=== PATIENT | female | born 1970 | race Caucasian/White ===

== ENCOUNTER 2016-07-06 09:06 | Emergency (ER) | payer MEDICARE, MEDICAID ==
[2016-07-06 10:47] VITALS: BP 114/72
--- NOTE | 2016-07-06 12:18 | RAD ---
Indication: Hip dislocation 5 views of left hip demonstrates superiorly subluxed humeral head out of the acetabulum. Marked deformity and superior dislocation of left femoral head is noted. When compared to previous exam of 5-12 this is unchanged. IMPRESSION: Chronic dislocation of the left hip. Right hip also demonstrates superior dislocation of the femoral head.
--- NOTE | 2016-07-06 12:58 | UC ---
Brianda Handy Salem, scribed for SabaValentin bermudez MD on 07/06/16 at 1104 . Hip/Pelvis Pain - HPI Summary HPI Summary: In Room note: Patient is a 45 y/o female who presents to the with left hip pain since this morning. Pt lives in a shelter and began to complain of pain when being dressed by aid. Pt has a hx of hip dislocation and fracture to femur. Pt has developmental delay. MD note: VSS; hx of spinal yanick placement, epilepsy, and developmental delay, multiple medications, in caregiving facility. Nurses note: Pt is from a shelter this morning pt was being dressed by aid and yelled out in pain to left hip. pt has a hx of hip dislocation - History Of Current Complaint Chief Complaint: UCLowerExtremity Stated Complaint: HIP PAIN Time Seen by Provider: 07/06/16 10:49 Hx Obtained From: Family/Area Operations Director Hx Last Menstrual Period: random Onset/Duration: Gradual Onset, Lasting Hours, Still Present Timing: Constant Severity Initially: Moderate Severity Currently: Moderate Location: Diffuse Character Of Pain: Sharp Aggravating Factor(s): Nothing Alleviating Factor(s): Nothing Associated Signs And Symptoms: Positive: Negative - Allergies/Home Medications Allergies/Adverse Reactions: Allergies Allergy/AdvReac Type Severity Reaction Status Date / Time Iodine Allergy UNK Verified 07/06/16 10:33 Latex Allergy UNK Verified 07/06/16 10:33 Home Medications: Home Medications Amoxil 07/06/16 [History] Diazepam TAB(*) [Valium TAB(*)] 5 mg PO TID PRN 07/06/16 [History Confirmed ] PMH/Surg Hx/FS Hx/Imm Hx Endocrine History Of: Denies: Diabetes, Thyroid Disease Cardiovascular History Of: Denies: Cardiac Disorders, Hypertension, Pacemaker/ICD Respiratory History Of: Denies: COPD, Asthma GI/ History Of: Denies: Gastroesophageal Reflux, Renal Disease Neurological History Of: Reports: Seizures Denies: CVA, Dementia Psychological History Of: Reports: Anxiety - sef-injurous behavior Other History Of: Negative For: Anticoagulant Therapy - Surgical History Surgical History: Yes Surgery Procedure, Year, and Place: SPINAL SURGERY RODS UNABLE TO SCAN - Family History Known Family History: Positive: Unknown - Pt is a poor historian. - Social History Alcohol Use: None Substance Use Type: None Smoking Status (MU): Never Smoked Tobacco - Immunization History Vaccination Up to Date: Yes Review of Systems Constitutional: Negative Musculoskeletal: Other: - Left hip pain. All Other Systems Reviewed And Are Negative: Yes Physical Exam Triage Information Reviewed: Yes Appearance: Well-Appearing, No Pain Distress, Well-Nourished Vital Signs: Initial Vital Signs Temp 97.7 F 07/06/16 10:26 Pulse 78 07/06/16 10:26 Resp 20 07/06/16 10:26 BP 114/72 07/06/16 10:26 Pulse Ox 97 07/06/16 10:26 Vital Signs Reviewed: Yes Eyes: Positive: Conjunctiva Clear ENT: Positive: Hearing grossly normal, Pharynx normal, TMs normal. Negative: Muffled/hoarse voice Neck: Positive: Supple, No Lymphadenopathy Respiratory: Positive: Chest non-tender, Lungs clear, Normal breath sounds, No respiratory distress Cardiovascular: Positive: RRR, No Murmur Abdomen Description: Positive: Nontender, No Organomegaly, Soft Bowel Sounds: Positive: Present Musculoskeletal: Positive: Other: - PT HAS OBVIOUSLY SHORTENED LOWER EXTREMITIES. SITTING WITHOUT DISCOMFORT BUT WHEN I TRIED TO MANIPULATE THE LLE SHE OBJECTS. Neurological: Positive: Alert Skin: Negative: rashes Diagnostics - Radiology HIP BILAT Radiology Interpretation Completed By: Radiologist - IMPRESSION: Chronic dislocation of the left hip. Right hip also demonstrates superior dislocation of the femoral head. Re-Evaluation - Re-Evaluation First Eval Re-Evaluation Time: 12:02 Comment: Informed caregivers that we are waiting on radiologist reading. Second Eval Re-Evaluation Time: 12:45 Comment: Informed caregivers of imaging resutls. Hip Injury Course/Dx - Course Course Of Treatment: Medications have been included in the original chart and reviewed. Pt has developmental delay and shortened lower extremity. She has a hx of femur fracture and bilateral hip displacement. XR shows a humeral head on the left that is dislocated superiorly. However this condition was present 5 years ago and is evident on xr from 06/17/11. Discussed this with care givers. Normal BP reading and no follow-up instructions required. - Differential Dx/Diagnosis Provider Diagnoses: Chronic dislocation of the left hip. Right hip also demonstrates superior dislocation of the femoral head. Discharge - Discharge Plan Condition: Stable Disposition: HOME Patient Education Materials: Hip Sprain (ED), Hip Dislocation (ED) Referrals: Princess Ross MD [Primary Care Provider] - Additional Instructions: Thank you for helping us improve patient care by filling out the My Point Survey. WE DISCUSSED: Beckie has chronic dislocations of both hips. A previous x ray 5 years ago shows dislocation of the left hip. Today's x ray also show dislocation of the right hip. Probably as Beckie is rolled and given care, her hips move and may dislocate and perhaps move back into position depending on the looseness of the joint. Warm moist heat to any area of discomfort. Recheck for continued pain in 2 days or sign of infection or decreased circulation. Call us for any questions or concerns. The documentation as recorded by the Brianda hoffman Salem accurately reflects the service I personally performed and the decisions made by me, Valentin Simmons MD.
== END 2016-07-06 13:05 | disposition home or self-care (01) ==
LOC: UCEAST 09:06
DX: S73.004A Unspecified dislocation of right hip, initial encounter (principal); M24.452 Recurrent dislocation, left hip; M21.70 Unequal limb length (acquired), unspecified site
CPT/HCPCS: 73523; 99212; G0463

== ENCOUNTER 2017-03-23 21:44 | Emergency (ER) | payer MEDICAID, MEDICARE ==
[2017-03-23 22:00] VITALS: BP 106/71
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
== END 2017-03-23 22:29 | disposition home or self-care (01) ==
LOC: UCEAST 21:44
DX: Z04.1 Encounter for examination and observation following transport accident (principal); Z88.3 Allergy status to other anti-infective agents; Z91.041 Radiographic dye allergy status; Z91.040 Latex allergy status
CPT/HCPCS: 99212; G0463

== ENCOUNTER 2019-02-15 18:09 | Emergency (ER) | payer MEDICARE, MEDICAID ==
--- NOTE | 2019-02-15 19:09 | ED ---
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 She choked on a hamburger and staff performed J-thrusts until a piece of meat was ejected. She is on a strict soft food diet. Pt is a level 5 caveat secondary to developmental delay. - History of Current Complaint Chief Complaint: EDGeneral Time Seen by Provider: 02/15/19 18:14 Hx Obtained From: EMS Hx From Patient Unobtainable Due To: Other - Pt is a level 5 caveat secondary to developmental delay. Onset/Duration: Sudden Onset, Resolved Associated Signs And Symptoms: Positive: Negative Cough: None - Allergies/Home Medications Allergies/Adverse Reactions: Allergies Allergy/AdvReac Type Severity Reaction Status Date / Time Iodinated Contrast Media Allergy Unknown Unknown Verified 03/23/17 22:01 [Iodinated Contrast- Oral Reaction and IV Dye] Details iodine Allergy Unknown Unknown Verified 03/23/17 22:01 Reaction Details latex Allergy Unknown Unknown Verified 03/23/17 22:01 Reaction Details PMH/Surg Hx/FS Hx/Imm Hx Endocrine/Hematology History: Denies: Hx Anticoagulant Therapy, Hx Diabetes, Hx Thyroid Disease Cardiovascular History: Denies: Hx Hypertension, Hx Pacemaker/ICD Respiratory History: Denies: Hx Asthma, Hx Chronic Obstructive Pulmonary Disease (COPD) History: Denies: Hx Renal Disease Musculoskeletal History: Reports: Hx Osteoporosis Neurological History: Reports: Hx Seizures Denies: Hx Dementia Psychiatric History: Reports: Hx Anxiety - sef-injurous behavior Denies: Hx Substance Abuse - Cancer History Hx Chemotherapy: No Hx Radiation Therapy: No - Surgical History Surgery Procedure, Year, and Place: SPINAL SURGERY RODS UNABLE TO SCAN, 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 - Social History Alcohol Use: None Substance Use Type: Reports: None Smoking Status (MU): Never Smoked Tobacco Review of Systems - ROS Summary Review of Systems Summary: Pt is a level 5 caveat secondary to developmental delay. Negative: Fever ENT: Other - choking, since resolved All Other Systems Reviewed And Are Negative: No - Comments Additional Review of Systems Comments: Pt is a level 5 caveat secondary to developmental delay. Physical Exam - Summary Physical Exam Summary: Constitutional: Well-developed, Well-nourished, Alert. (-) Distressed Skin: Warm, Dry HENT: Normocephalic; Atraumatic Eyes: Conjunctiva normal Neck: Musculoskeletal ROM normal neck. (-) JVD, (-) Stridor, (-) Tracheal deviation Cardio: Rhythm regular, rate normal, Heart sounds normal; Intact distal pulses; The pedal pulses are 2+ and symmetric. Radial pulses are 2+ and symmetric. (-) Murmur Pulmonary/Chest wall: Effort normal. (-) Respiratory distress, (-) Wheezes, (-) Rales Abd: Soft, (-) tenderness, (-) Distension, (-) Guarding, (-) Rebound Musculoskeletal: (-) Edema Lymph: (-) Cervical adenopathy Neuro: Alert, cognitive delay, Pt is a level 5 caveat Triage Information Reviewed: Yes Vital Signs On Initial Exam: Initial Vitals Temp Pulse Resp BP Pulse Ox 98.9 F 97 16 132/87 100 02/15/19 18:23 02/15/19 18:23 02/15/19 18:23 02/15/19 18:23 02/15/19 18:23 Vital Signs Reviewed: Yes Procedures - Sedation Patient Received Moderate/Deep Sedation with Procedure: No Diagnostics - Vital Signs Vital Signs Temp Pulse Resp BP Pulse Ox 02/15/19 18:23 98.9 F 97 16 132/87 100 - Laboratory Lab Statement: Any lab studies that have been ordered have been reviewed, and results considered in the medical decision making process. - Radiology CXR Radiology Interpretation Completed By: ED Physician Summary of Radiographic Findings: There is extensive spinal hardware in place. No acute disease, no evidence of aspiration. Pending official report. 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 She choked on a hamburger and staff performed J- thrusts until a piece of meat was ejected. She is on a strict soft food diet. Pt is a level 5 caveat secondary to developmental delay. Physical exam was unremarkable. CXR: There is extensive spinal hardware in place. No acute disease, no evidence of aspiration. Patient has normal pulse oximetry, normal lung sounds. CXR limited by scoliosis and hardware. Patient to follow up with PCP in 2-3 days. - Diagnoses Provider Diagnoses: Choking episode Discharge ED - Sign-Out/Discharge Documenting (check all that apply): Patient Departure - discharge - Discharge Plan Condition: Stable Disposition: HOME Patient Education Materials: Performing the Heimlich Maneuver (ED) Referrals: Princess Ross MD [Primary Care Provider] - 3 Days Additional Instructions: PLEASE RETURN TO ED FOR ANY NEW OR CONCERNING SYMPTOMS. PLEASE FOLLOW UP WITH YOUR PRIMARY CARE PHYSICIAN WITHIN THREE DAYS. - Attestation Statements Document Initiated by Scribe: Yes Documenting Scribe: EZIO MOORE Provider For Whom Scribe is Documenting (Include Credential): OKSANA NASH MD Scribe Attestation: I, EZIO MOORE, scribed for OKSANA NASH MD on 02/15/19 at 2131. Status of Scribe Document: Ready
[2019-02-15 20:27] VITALS: BP 127/90
== END 2019-02-15 20:08 | disposition home or self-care (01) ==
LOC: ED 18:09
DX: R09.89 Other specified symptoms and signs involving the circulatory and respiratory systems (principal); F41.9 Anxiety disorder, unspecified
CPT/HCPCS: 71046; 99282

== ENCOUNTER 2019-02-24 18:15 | Emergency (ER) | payer MEDICARE, MEDICAID ==
[2019-02-24 18:36] VITALS: BP 158/98
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
[2019-02-24 19:02] LABS: Influenza A Molecular NEGATIVE (Negative); Influenza B Molecular NEGATIVE (Negative)
== END 2019-02-24 19:33 | disposition home or self-care (01) ==
LOC: UCEAST 18:15
DX: J06.9 Acute upper respiratory infection, unspecified (principal); Z91.09 Other allergy status, other than to drugs and biological substances; Z91.041 Radiographic dye allergy status; Z91.040 Latex allergy status
CPT/HCPCS: 99212; G0463

== ENCOUNTER 2019-04-07 10:20 | Emergency (ER) | payer MEDICARE, MEDICAID ==
[2019-04-07 10:36] VITALS: BP 100/66
--- NOTE | 2019-04-07 10:40 | UC ---
FLU HPI - HPI Summary HPI Summary: Patient is a 48yo female halfway resident presenting with meter mechanic for "flu symptoms." History obtained from meter mechanic, as patient is nonverbal. Applications Systems Engineer, Michelle, states the patient has had a "runny nose and low grade fever of 99 something" since yesterday. Denies cough, sob, wheezing, and difficulty breathing. Denies n/v. Does note a couple episodes of diarrhea. Notes normal appetite and fluid intake. States "another family that visited the halfway had a member who had tested positive for flu and now residents in the home are coming down with symptoms." - History of Current Complaint Stated Complaint: WANTS FLU SWAB Hx Obtained From: Family/Applications Systems Engineer Hx Last Menstrual Period: random Pain Intensity: 0 - Allergy/Home Medications Allergies/Adverse Reactions: Allergies Allergy/AdvReac Type Severity Reaction Status Date / Time Iodinated Contrast Media Allergy Unknown Unknown Verified 04/07/19 10:37 [Iodinated Contrast- Oral Reaction and IV Dye] Details iodine Allergy Unknown Unknown Verified 04/07/19 10:37 Reaction Details latex Allergy Unknown Unknown Verified 04/07/19 10:37 Reaction Details Home Medications: Home Medications Cetirizine HCl 10 mg PO DAILY 11/21/11 [History Confirmed 04/07/19] Colace Cap* 100 mg PO DAILY 11/21/11 [History Confirmed 04/07/19] Magnesium 250 mg PO BID 11/21/11 [History Confirmed 04/07/19] Multivitamins/Minerals TAB* [Theragran/minerals TAB*] 1 tab PO DAILY 11/21/11 [ History Confirmed 04/07/19] Vitamin A & D Oint* 1 applic TOPICAL TID PRN 11/21/11 [History Confirmed ] Vitamin D3 1,000 units PO DAILY 11/21/11 [History Confirmed 04/07/19] busPIRone TAB* 20 mg PO BID 11/21/11 [History Confirmed 04/07/19] carBAMazepine TAB(*) 200 mg PO BID 11/21/11 [History Confirmed 04/07/19] ARIPiprazole TAB* [Abilify TAB*] 2 mg PO DAILY 04/07/15 [History Confirmed ] Diazepam TAB(*) [Valium TAB(*)] 5 mg PO SEE INSTRUCTIONS PRN 07/06/16 [History Confirmed 04/07/19] ARIPiprazole TAB* [Abilify TAB*] 5 mg PO BEDTIME 03/23/17 [History Confirmed ] Acetaminophen TAB* [Tylenol TAB*] 650 mg PO Q4H PRN 03/23/17 [History Confirmed 04/07/19] Amoxicillin PO (*) [Amoxicillin 500 MG CAP*] 4 cap PO SEE INSTRUCTIONS PRN 03/23 [History] Bacitracin Zinc 1 each TOPICAL DAILY PRN 03/23/17 [History Confirmed 04/07/19] Bisacodyl [Dulcolax] 10 mg UT DAILY PRN 03/23/17 [History Confirmed 04/07/19] Guaifenesin/Dextromethorphan [Robitussin Cough-Chest Dm Liq] 10 ml PO Q4H PRN [History Confirmed 04/07/19] Ibuprofen TAB* [Motrin TAB* 600 MG] 600 mg PO Q6H PRN 03/23/17 [History Confirmed 04/07/19] Mupirocin 2% OINT* [Bactroban 2 % Oint*] 1 applic TOPICAL BID 03/23/17 [History Confirmed 04/07/19] Oxymetazoline 0.05% NASAL SPR* [Afrin 0.05% NASAL SPRAY*] 2 spray BOTH NARES BID PRN 03/23/17 [History Confirmed 04/07/19] Polyethylene Glycol 3350* [Miralax*] 17 gm PO DAILY 03/23/17 [History Confirmed 04/07/19] Sodium Phosphate ADULT ENEMA* [Fleet Enema*] 1 bottle .SEE ORDER DAILY PRN 03/23 [History Confirmed 04/07/19] Wheat Dextrin [Benefiber] 1 each PO DAILY 03/23/17 [History Confirmed 04/07/19] Whey Protein Isolate [Beneprotein] 1 each PO TID 03/23/17 [History Confirmed ] PMH/Surg Hx/FS Hx/Imm Hx Other History Of: Negative For: Anticoagulant Therapy - Surgical History Surgical History: Yes Surgery Procedure, Year, and Place: SPINAL SURGERY RODS UNABLE TO SCAN, PATIENT DAY COORDINATOR SHUNT - Family History Known Family History: Positive: Unknown - Pt is a level 5 caveat secondary to developmental delay. - Social History Alcohol Use: None Substance Use Type: None Smoking Status (MU): Never Smoked Tobacco - Immunization History Vaccination Up to Date: Yes Review of Systems All Other Systems Reviewed And Are Negative: Yes Constitutional: Positive: Fever ENT: Positive: Nasal Discharge, Sinus Congestion Respiratory: Positive: Negative Cardiovascular: Positive: Negative Gastrointestinal: Positive: Diarrhea Physical Exam - Summary Physical Exam Summary: Vital Signs Reviewed: Yes Alert, no distress Eyes: Conjunctiva Clear ENT: Hearing grossly normal, right TM clear, left TM cerumen impaction, moist, uvula midline, no exudate, no erythema Neck: Positive: Supple Respiratory: Positive: No respiratory distress, No accessory muscle use + CTA throughout no w/r Cardiovascular: RRR nl s1, s2 no m/r Abd: soft + BS nt/nd no guarding Musculoskeletal Exam: DOYLE x 4 without difficulty, nonambulatory in wheelchair Neurological: Positive: Alert Skin: Positive: no rash, no ecchymosis Vital Signs: Initial Vital Signs Temp 97.5 F 04/07/19 10:33 Pulse 95 04/07/19 10:33 Resp 16 04/07/19 10:33 BP 100/66 04/07/19 10:33 Pulse Ox 100 04/07/19 10:33 Lab Results 04/07/19 Range/Units 10:50 Influenza A (Rapid) Negative (Negative) Influenza B (Rapid) Negative (Negative) Flu Course/Dx - Course Course Of Treatment: Negative rapid flu. Discussed this with meter mechanic and educated on viral illness. Instructed to continue symptomatic treatment and to follow up with PCP if symptoms do not improve within 7 days. Applications Systems Engineer voiced understanding and agreed with the treatment plan. - Differential Dx/Diagnosis Differential Diagnosis/HQI/PQRI: Influenza, Upper Respiratory Infection Provider Diagnosis: Flu-like symptoms Discharge ED - Sign-Out/Discharge Documenting (check all that apply): Patient Departure All imaging exams completed and their final reports reviewed: No Studies - Discharge Plan Condition: Stable Disposition: HOME Patient Education Materials: Viral Syndrome (ED) Referrals: Princess Ross MD [Primary Care Provider] - If Needed Additional Instructions: As discussed, you tested negative for influenza today. You may continue with motrin and/or tylenol for fever and pain relief. Get plenty of rest and increase your fluid intake. Follow up with your primary care provider if symptoms do not improve within 7 days. - Billing Disposition and Condition Condition: STABLE Disposition: Home - Attestation Statements Provider Attestation: This patient was not seen by me. I was available for consult. Chart reviewed. CARMEN
[2019-04-07 11:02] LABS: Influenza A Molecular Negative (Negative); Influenza B Molecular Negative (Negative)
== END 2019-04-07 11:13 | disposition home or self-care (01) ==
LOC: UCEAST 10:20
DX: R09.89 Other specified symptoms and signs involving the circulatory and respiratory systems (principal); R09.81 Nasal congestion; R19.7 Diarrhea, unspecified; Z91.041 Radiographic dye allergy status; Z91.040 Latex allergy status; Z91.09 Other allergy status, other than to drugs and biological substances
CPT/HCPCS: 99212; G0463